=== PATIENT | male | born 1990 | race Caucasian/White ===

== ENCOUNTER 2022-12-16 08:44 | Outpatient (CLI) | payer MEDICAID, SELFPAY ==
[2022-12-16 10:52] LABS: Albumin* 4.8 g/dL (3.3-5.0); Chloride* 107 mmol/L (96-114)
[2022-12-16 10:53] LABS: Potassium* 4.3 mmol/L (3.6-5.1); Sodium* 143 mmol/L (135-149)
[2022-12-16 10:55] LABS: Aspartate Amino Transferase* 34 U/L (12-35); Bilirubin Total* 0.8 mg/dL (0.1-1.5); Blood Urea Nitrogen* 23 mg/dL (5-24); Carbon Dioxide* 27 mmol/L (20-32); Cholesterol* 197 mg/dL (90-199); Creatinine* 0.8 mg/dL (0.5-1.5); Estimated Glomerular Filt Rate 121 ml/min; Total Protein* 7.9 g/dL (6.0-8.3)
[2022-12-16 10:56] LABS: Alanine Aminotransferase* 49 U/L (4-50); Alkaline Phosphatase* 68 U/L (40-150); Calcium* 9.5 mg/dL (8.4-10.6); Glucose* 81 mg/dL (60-115); HDL Cholesterol* 43 mg/dL (>=40); LDL Cholesterol Calculated 116 mg/dL (<100); Triglycerides* 189 mg/dL (40-149)
== END 2022-12-16 08:45 | disposition home or self-care (01) ==
PROVIDERS: PCP Family Medicine; Visit Provider Family Medicine
DX: Z00.00 Encounter for general adult medical examination without abnormal findings (principal); F32.A Depression, unspecified; F41.9 Anxiety disorder, unspecified; R10.9 Unspecified abdominal pain; G44.209 Tension-type headache, unspecified, not intractable; Z13.6 Encounter for screening for cardiovascular disorders
CPT/HCPCS: 80053; 80061; 84443